=== PATIENT | female | born 1985 | race Caucasian/White ===

== ENCOUNTER 2018-01-26 09:38 | Inpatient (IN) | payer BC ==
[2018-01-26 09:57] VITALS: BMI 25.9
[2018-01-26] MEDS ORDERED: Lactated Ringer's 1,000 ML IV ONE ×2 (10:11→13:00)
--- NOTE | 2018-01-26 10:21 | OBADHP ---
Datetime: 01/26/2018 10:13 Admit Comment, IP Provider: 32yo IUP at 38+w c/o CTX since 3am. Q5m. no SROM; no VB + FM PNC: Dr Jeff - Protienuria (578mg/24 on December 2017) / GDMA1 diet controlled / renal arteries x2 PMH: Denies PSH: expl lap/hernia repair Allergy Hydromorphone POBGYNH: G1 - ectopic; G2 present; no STD A; IUP at 38+w latent phase of labor GDMA1 renal arteries x 2 PLAN: admit to L_D pain management, labor, medications; augmentation, delivery and discussed. her question s answered Pelvic Type - PN: Adequate Extremities - PN: Normal Abdomen - PN: Normal Back - PN: Normal Breast - PN: Not Done Lungs - PN: Normal Heart - PN: Normal Thyroid - PN: Normal Neurologic - PN: Normal HEENT - PN: Normal General - PN: Normal Presentation-Admit: Vertex FHR - Baseline A Provider: 140 Membranes, Provider: Intact Contraction Comments Provider: + Pool Provider: Negative IP Hx Assessment: The History has been Reviewed and is Current Vital Signs Provider: Reviewed; Within Normal Limits IP Chief Complaint: Uterine contractions NICHD Variability Prov Fetus A: Moderate 6-25bpm NICHD Accel Fetus A IP Provider: 15X15 FHR Category Provider Fetus A: Category I NICHD Decel Fetus A IP Provider: None Dilatation, Provider: 3 Effacement, Provider: 50 Station, Provider: -2 Genitourinary Exam: Normal DTRs - PN: Normal IP Adm Impression: Term, intrauterine ; No Active Labor; Intact Membranes IP Admit Plan: Admit to unit; Initiate labor protocol
[2018-01-26 12:03] LABS: BASO % 0.4 % (0.0-2.0); EOS % 0.4 % (0.0-4.0); LYMPH # 1.9 K/uL (1.0-4.3); LYMPH % 18.2 % (20.0-40.0); MEAN CELL VOLUME 90.2 fl (81.0-99.0); MEAN CORPUSCULAR HGB CONC 34.4 g/dL (33.0-37.0); MEAN PLATELET VOLUME 9.8 fl (7.2-11.7); MONO # 0.6 K/uL (0.0-0.8); MONO % 5.9 % (0.0-10.0); NEUT # 7.8 K/uL (1.8-7.0); NEUT % 75.1 % (50.0-75.0); RBC 4.51 Mil/uL (3.80-5.20); RED CELL DISTRIBUTION WIDTH 13.2 % (11.5-14.5); WHITE BLOOD COUNT 10.4 K/uL (4.8-10.8)
[2018-01-26] MEDS ORDERED: Nalbuphine 20 mg/ml Inj (1 ml) IVP ONE (13:20)
[2018-01-26] MEDS ORDERED: Fentanyl/Bupivacaine HCl 250 ML EPI ONE (14:47)
[2018-01-26] MEDS ORDERED: Oxytocin 30 units/LR 500ML 30 U/500 ML BAG IV ONE (15:04)
[2018-01-26] MEDS ORDERED: OXYTOCIN/0.9 % NS 20 UNIT/1,000 ML BAG IV SCH (15:15)
--- NOTE | 2018-01-26 15:24 | OBPN ---
Datetime: 01/26/2018 15:15 IP Progress Impression: Normal progression of labor; Reassuring heart rate IP Informed Consent Obtain: Vaginal Delivery IP Procedures: Artificial ROM IP Progress Plan: Augmentation; Anticipate Vaginal Delivery Pool Provider: Positive Membranes, Provider: Ruptured Contraction Comments Provider: 2-5m FHR - Baseline A Provider: 140 Presentation-Admit: Vertex IP Progress Note Comment: she was admitted 10am with CTX pain. She felt more pain at 1pm and she was noted to be 6cm. She was given epidural at 2pm. She feels better now. SVE 6-7cm Active phase of labor PLAN: Discussion about augmentatoin...AROM clear fluid noted. continue to monito progress NICHD Accel Fetus A IP Provider: 15X15 FHR Category Provider Fetus A: Category I NICHD Variability Prov Fetus A: Moderate 6-25bpm Dilatation, Provider: 6-7 Effacement, Provider: 100 Station, Provider: 0 NICHD Decel Fetus A IP Provider: None Datetime: 01/26/2018 10:13 Vital Signs Provider: Reviewed; Within Normal Limits
[2018-01-26] MEDS ORDERED: Lactated Ringer's 1,000 ML IV SCH (17:00)
--- NOTE | 2018-01-26 17:13 | OBPN ---
Datetime: 01/26/2018 17:05 IP Progress Impression: Normal progression of labor; Reassuring heart rate; Reactive non-stres s test IP Progress Plan: Continue present management; Anticipate Vaginal Delivery Contraction Comments Provider: 2-4m FHR - Baseline A Provider: 140 IP Progress Note Comment: earlier she had early decels and 8cm. She feel fine. no pain A; Active phase of labor PLAN: continue to observe labor progress NICHD Accel Fetus A IP Provider: 15X15 FHR Category Provider Fetus A: Category I NICHD Variability Prov Fetus A: Moderate 6-25bpm Dilatation, Provider: 8-9 Effacement, Provider: 100 Station, Provider: 0
[2018-01-26] MEDS ORDERED: Benzocaine/Menthol SPRAY TOP PRN (22:20)
[2018-01-26] MEDS ORDERED: Oxycodone/Acetaminophen 5/325 mg Tab PO PRN (22:20)
--- NOTE | 2018-01-26 23:17 | OBDS ---
DELIVERY PERSONNEL Delivery Doctor: Stan Valadez MD Anesthesiologist: Eduardo Young MD Resident: Dr. Mane (OB fellow) MATERNAL INFORMATION Delivery Anesthesia: Local; Epidural Medications in Delivery: Oxytocin Placenta Cultured: No Maternal Complications: None Provider Comments: Uncomplicated spontaneous vaginal delivery of a viable with scores o f 9 and 9. Secon degree perineal laceration repaired with 4-0 vicryl rapide with good cosmesis. EBL- 250mls Patient tolerated the procedure well. LABOR SUMMARY No. Babies in Womb: 1 Attempted: No Labor Anesthesia: Epidural LABOR INFORMATION Reason for Induction: Not Applicable Complete Dilatation: 01/26/2018 19:15 Oxytocin: N/A Group B Beta Strep: Negative MEMBRANES Membranes Rupture Method: Artificial Amniotic Fluid Color: Clear Amniotic Fluid Amount: Moderate Amniotic Fluid Odor: Normal VAGINAL DELIVERY Episiotomy: None Laceration Extension: Second Degree Laceration Type: Perineal Other Laceration: Labial Laceration Repair: Yes Initial Vag Sponge Count: 5 Final Vag Sponge Count: 5 Initial Vag Sharps Count: 3 Final Vag Sharps Count: 3 Sponge Count Correct: Yes Sharps Count Correct: Yes
[2018-01-27] MEDS ORDERED: Oxycodone/Acetaminophen 5/325 mg Tab PO PRN (06:15)
[2018-01-27] MEDS ORDERED: Benzocaine/Menthol SPRAY TOP PRN (06:15)
--- NOTE | 2018-01-28 01:12 | OBPPN ---
Datetime: 01/27/2018 11:08 PP Pain Prov: Within normal limits PP Nausea Prov: Denies PP Flatus Prov: Yes PP Breasts Prov: Normal PP Heart Prov: Normal PP Lungs Prov: Normal PP Abdomen/Uterus Prov: Normal PP Lochia Prov: Normal PP Vulva/Perineum Prov: Normal PP CVA Tenderness Prov: Normal PP Extremities Prov: Normal PP Progress Prov: Normal PP Comments Phys Exam Prov: Abd; Soft, NT , BS- present UT- firm PP Impression Prov: Normal progression PP Plan Prov: Continue present management PP Progress Note Prov: S/P , CLinically Stable. Plan: Continue care.
[2018-01-28 07:53] LABS: MEAN CELL VOLUME 90.4 fl (81.0-99.0); MEAN CORPUSCULAR HEMOGLOBIN 31.1 pg (27.0-31.0); MEAN CORPUSCULAR HGB CONC 34.4 g/dL (33.0-37.0); RBC 3.6 Mil/uL (3.80-5.20); RED CELL DISTRIBUTION WIDTH 13.1 % (11.5-14.5); WHITE BLOOD COUNT 16.1 K/uL (4.8-10.8)
[2018-01-28 08:00] LABS: HEMOGLOBIN 11.2 g/dL (12.0-16.0)
--- NOTE | 2018-01-28 11:25 | OBPPN ---
Datetime: 01/28/2018 11:22 PP Pain Prov: Within normal limits PP Nausea Prov: Denies PP Flatus Prov: Yes PP Breasts Prov: Normal PP Heart Prov: Normal PP Lungs Prov: Normal PP Abdomen/Uterus Prov: Normal PP Lochia Prov: Normal PP Vulva/Perineum Prov: Normal PP CVA Tenderness Prov: Normal PP Extremities Prov: Normal PP Progress Prov: Normal PP Comments Phys Exam Prov: Abd: Soft, NT, BS - present UT- Firm PP Impression Prov: Normal progression PP Plan Prov: Discharge PP Progress Note Prov: S/P , PPD #2 Clinically Stable. Plan: D/C Home.
--- NOTE | 2018-01-28 11:27 | OBDCSUM ---
Datetime: 01/28/2018 11:24 Discharged to, Provider: Home Follow up at, Provider: OB Clinician Disch Instr Activity: Normal activity Disch Instr Diet: Regular Discharge Instructions, Provider: Routine instructions given Discharge Diagnosis, Provider: Term Delivered Discharge Time: 01/28/2018 11:24 Follow up in weeks, Provider: 6 weeks Disch Referrals: None Contraception discussed, Prov: Yes Discharge Comment, Provider: S/P Uncomplicated , Clinically Stable Discharge Diagnosis Prov Other: S/P Uncomplicated , Clinically Stable
[2018-01-28 22:14] VITALS: BP 130/79; PULSE 100; RESP 20; TEMP 98.8; O2SAT 97
== END 2018-01-28 17:00 | disposition home or self-care (01) | DRG 775 ==
LOC: H.EROB2 09:38 → H.EROB 10:11 → H.OB/GYN 01-27 01:00
PROVIDERS: ADMIT Obstetrics & Gynecology; ATTEND Obstetrics & Gynecology
PROC: 10E0XZZ Delivery of Products of Conception, External Approach (ICD-10-PCS; principal; 2018-01-26)
PROC: 0KQM0ZZ Repair Perineum Muscle, Open Approach (ICD-10-PCS; 2018-01-26)
PROC: 10907ZC Drainage of Amniotic Fluid, Therapeutic from Products of Conception, Via Natural or Artificial Opening (ICD-10-PCS; 2018-01-26)
DX: O70.1 Second degree perineal laceration during delivery (principal); Z37.0 Single live birth; Z3A.38 38 weeks gestation of pregnancy; Z86.32 Personal history of gestational diabetes